=== PATIENT | female | born 1980 | race Hispanic/Latino ===

== ENCOUNTER 2019-02-18 06:34 | Day surgery (SDC) | payer OTHER ==
[2019-02-17 10:25] VITALS: BP 104/63
[2019-02-17 10:41] LABS: BASOPHILS % (AUTO) 0.7 % (0.0-5.0); EOSINOPHILS % (AUTO) 1.3 % (0.0-8.0); LYMPHOCYTES % (AUTO) 30.8 % (21.0-51.0); MEAN CORPUSCULAR HEMOGLOBIN 31.8 pg (27.0-33.0); MEAN CORPUSCULAR HGB CONC 33.2 g/dL (32.0-36.0); MEAN CORPUSCULAR VOLUME 95.6 fL (79-99); MONOCYTES % (AUTO) 8.3 % (3.0-13.0); NEUTROPHILS % (AUTO) 58.9 % (40.0-77.0); NUCLEATED RED BLOOD CELLS 0.1 % (0.0-0.19); PLATELET COUNT (AUTO) 320 K/uL (130-400); RED BLOOD CELL COUNT(AUTO) 4.29 MIL/uL (4.00-5.50); RED CELL DISTRIBUTION WIDTH 13.1 % (11.0-15.5); WHITE BLOOD COUNT (AUTO) 9.6 K/uL (4.8-10.8)
[~2019-02-18] VITALS: Ht 166.4 cm; Wt 66.6 kg
[2019-02-18] VITALS (16 sets, daily range): BP systolic 98–132; BP diastolic 61–84
[2019-02-18] MEDS ORDERED: PROPOFOL 10 MG/ML 20ML VIAL IV ONE (07:17)
[2019-02-18] MEDS ORDERED: MIDAZOLAM HCL 1 MG/ML 2ML VIAL ONE (07:17)
[2019-02-18] MEDS ORDERED: ONDANSETRON HCL 4 MG/2 ML VIAL ONE (07:18)
[2019-02-18] MEDS ORDERED: ROCURONIUM 10MG/1ML SYR 10 MG/ML ML ONE (07:18)
[2019-02-18] MEDS ORDERED: FENTANYL CITRATE PF 50 MCG/1 ML 2ML VIAL ONE (07:19)
[2019-02-18] MEDS: LACTATED RINGERS 1000ML 1,000 ML IV SCH ×2 (07:23→08:20)
[2019-02-18] MEDS ORDERED: GLYCOPYRROLATE 1 MG/5 ML SYRINGE ONE (08:00)
[2019-02-18] MEDS ORDERED: NEOSTIGMINE 5MG/5ML SYR IV ONE (08:01)
[2019-02-18] MEDS ORDERED: MEPERIDINE-PF 25 MG/ML SYG ONE (08:18)
--- NOTE | 2019-02-18 09:18 | NUR ---
ASSESSMENT RECEIVED PT FROM PACU STAFF YUE GACRIA. DRSG X2 DRY, SOFT AND INTACT. NO BLEEDING, OOZING NOTED TO SITE. PERIPAD IN PLACE. NO BLEEDING, OOZING NOTED. PT DENIES ANY PAIN.
== END 2019-02-18 10:50 | disposition home or self-care (01) ==
LOC: DAH 06:34
PROVIDERS: ATTEND Specialist
DX: Z30.2 Encounter for sterilization (principal); Z83.3 Family history of diabetes mellitus
CPT/HCPCS: 36415; 84703; 85025; 86850; 86900; 86901; A4351; J2175; J2250; J2405; J2704; J2710; J3010; J3490; J7030; J7120